=== PATIENT | male | born 1985 | race African-American/Black ===

== ENCOUNTER 2022-11-28 00:43 | Inpatient (IN) | payer MEDICAID, SELFPAY ==
[2022-11-27] MEDS: IPRATROPIUM BROMIDE (0.02%) 0.5MG/2.5ML NEB HHN SCH (01:35)
[~2022-11-28] VITALS: Ht 190.5 cm; Wt 76.2 kg
[2022-11-28] MEDS ORDERED: PREDNISONE 20MG TABLET PO STA (00:49)
[2022-11-28] MEDS ORDERED: IPRATROPIUM BROMIDE (0.02%) 0.5MG/2.5ML NEB HHN STA (00:49)
[2022-11-28] MEDS ORDERED: ALBUTEROL (0.083%) 2.5MG/3ML NEB HHN STA (00:49)
[2022-11-28] MEDS ORDERED: MAGNESIUM 2 G PREMIX 50 ML IV ONE (01:00)
[2022-11-28] MEDS ORDERED: ASPIRIN 81MG TABLET PO ONE (01:00)
[2022-11-28 01:28] LABS: CHLORIDE 109 mEq/L (98-107)
[2022-11-28 02:09] LABS: BASOPHILS % 0.5 % (0.0-2.0); HEMATOCRIT. 38.9 % (42.0-52.0); HEMOGLOBIN. 12.1 g/dL (14.0-18.0); LYMPHOCYTES % 34.4 % (20.0-50.0); MEAN CORPUSCULAR VOLUME 83.5 fL (80.0-94.0); MEAN PLATELET VOLUME 9.7 fl (7.4-10.4); MONOCYTES % 11.4 % (2.0-8.0); NEUTROPHILS % 47.7 % (40.0-76.0); PLATELET 210 x1000/uL (130-400); RED BLOOD CELL COUNT 4.65 mill/uL (4.7-6.1); RED CELL DISTRIBUTION WIDTH 23.4 % (11.6-14.6)
[2022-11-28] MEDS ORDERED: FUROSEMIDE 100MG/10ML VIAL IVP NR (02:45)
[2022-11-28 04:34] LABS: PLATELET ESTIMATE NORMAL
[2022-11-28 14:20] VITALS: BP 133/84
[2022-11-28] MEDS ORDERED: ACETAMINOPHEN 325MG TABLET PO PRN (14:30)
[2022-11-28] MEDS ORDERED: ONDANSETRON HCL 4MG/2ML INJ IV PRN (14:30)
[2022-11-28] MEDS ORDERED: ARIP20TA2 PO (14:34)
[2022-11-28] MEDS ORDERED: LITH300C3 PO (14:34)
[2022-11-28] MEDS: GUAIFENESIN-DM 200MG-20MG/10ML UDC PO PRN ×2 (16:43→23:47)
[2022-11-28 20:59] VITALS: BP 116/87
[2022-11-28] MEDS: IPRATROPIUM BROMIDE (0.02%) 0.5MG/2.5ML NEB HHN SCH (21:23)
[2022-11-29] VITALS: BP 108/81
[2022-11-29 04:00] VITALS: BP 126/95
[2022-11-29 08:00] VITALS: BP 134/96
[2022-11-29 08:00] LABS: CHLORIDE 104 mEq/L (98-107)
[2022-11-29] MEDS: FUROSEMIDE 40MG/4ML VIAL IVP SCH (08:29)
[2022-11-29] MEDS: IPRATROPIUM BROMIDE (0.02%) 0.5MG/2.5ML NEB HHN SCH ×3 (09:35→21:16)
[2022-11-29 12:00] VITALS: BP 115/68
[2022-11-29] MEDS: LORATADINE 10MG TABLET PO SCH (15:49)
[2022-11-29 16:00] VITALS: BP 129/88
[2022-11-29] MEDS ORDERED: IOHEXOL-300 100 ML BOTTLE ONE ×2 (18:45→19:45)
[2022-11-29 20:00] VITALS: BP 115/91
[2022-11-30] VITALS: BP 120/89
[2022-11-30] MEDS: IPRATROPIUM BROMIDE (0.02%) 0.5MG/2.5ML NEB HHN SCH ×4 (02:35→22:06)
[2022-11-30 04:00] VITALS: BP 115/84
[2022-11-30 06:59] LABS: CHLORIDE 104 mEq/L (98-107)
[2022-11-30 08:00] VITALS: BP 111/80
[2022-11-30] MEDS: GUAIFENESIN-DM 200MG-20MG/10ML UDC PO PRN (09:50)
[2022-11-30] MEDS: LORATADINE 10MG TABLET PO SCH (09:51)
[2022-11-30] MEDS: FUROSEMIDE 40MG/4ML VIAL IVP SCH (09:51)
[2022-11-30 12:00] VITALS: BP 106/78
[2022-11-30] MEDS: CEFTRIAXONE 1,000 MG in DEXTROSE 5% WATER 50 ML IV SCH (14:00)
[2022-11-30 16:00] VITALS: BP 117/84
[2022-11-30 17:42] LABS: *AMPHETAMINES SCREEN URINE NEGATIVE (NEGATIVE); *BARBITURATES SCREEN URINE NEGATIVE (NEGATIVE); *BENZODIAZEPINES SCREEN URINE NEGATIVE (NEGATIVE); *COCAINE SCREEN URINE NEGATIVE (NEGATIVE); CANNABINOID URINE SCREEN PRESUMTIVE POSITIVE (NEGATIVE); METHADONE URINE SCREEN NEGATIVE (NEGATIVE); OPIATES URINE SCREEN NEGATIVE (NEGATIVE); PHENCYCLIDINE URINE SCREEN NEGATIVE (NEGATIVE)
[2022-11-30 20:00] VITALS: BP 132/88
[2022-11-30] MEDS: CARVEDILOL 3.125 MG TABLET PO SCH (20:57)
[2022-12-01] VITALS: BP 112/76
[2022-12-01] MEDS: IPRATROPIUM BROMIDE (0.02%) 0.5MG/2.5ML NEB HHN SCH ×4 (01:04→20:53)
[2022-12-01 04:00] VITALS: BP 113/78
[2022-12-01 08:00] VITALS: BP 115/80
[2022-12-01] MEDS: LORATADINE 10MG TABLET PO SCH (08:40)
[2022-12-01] MEDS: FUROSEMIDE 40MG/4ML VIAL IVP SCH (08:41)
[2022-12-01] MEDS: CARVEDILOL 3.125 MG TABLET PO SCH ×2 (08:41→20:33)
[2022-12-01 12:00] VITALS: BP 110/80
[2022-12-01] MEDS: CEFTRIAXONE 1,000 MG in DEXTROSE 5% WATER 50 ML IV SCH (12:41)
[2022-12-01 16:00] VITALS: BP 115/79
[2022-12-01 20:00] VITALS: BP 101/61
[2022-12-02] VITALS: BP 116/86
[2022-12-02] MEDS: IPRATROPIUM BROMIDE (0.02%) 0.5MG/2.5ML NEB HHN SCH ×4 (03:00→21:55)
[2022-12-02 04:00] VITALS: BP 109/72
[2022-12-02 08:00] VITALS: BP 129/72
[2022-12-02] MEDS: LORATADINE 10MG TABLET PO SCH (09:41)
[2022-12-02] MEDS: FUROSEMIDE 40MG/4ML VIAL IVP SCH (09:41)
[2022-12-02] MEDS: CARVEDILOL 3.125 MG TABLET PO SCH (09:42)
[2022-12-02 12:00] VITALS: BP 102/64
[2022-12-02] MEDS: CEFTRIAXONE 1,000 MG in DEXTROSE 5% WATER 50 ML IV SCH (12:10)
[2022-12-02 16:00] VITALS: BP 107/64
[2022-12-02 20:00] VITALS: BP 102/79
[2022-12-02] MEDS: CARVEDILOL 6.25 MG TABLET PO SCH (22:07)
[2022-12-03] VITALS: BP 103/79
[2022-12-03] MEDS: IPRATROPIUM BROMIDE (0.02%) 0.5MG/2.5ML NEB HHN SCH ×3 (03:11→14:59)
[2022-12-03 04:00] VITALS: BP 101/71
[2022-12-03 08:00] VITALS: BP 105/71
[2022-12-03] MEDS: CARVEDILOL 6.25 MG TABLET PO SCH ×2 (09:00→20:34)
[2022-12-03 09:06] LABS: CHLORIDE 102 mEq/L (98-107)
[2022-12-03] MEDS: GUAIFENESIN-DM 200MG-20MG/10ML UDC PO PRN (09:38)
[2022-12-03] MEDS: FUROSEMIDE 40MG/4ML VIAL IVP SCH (09:38)
[2022-12-03] MEDS: LORATADINE 10MG TABLET PO SCH (09:38)
[2022-12-03 12:00] VITALS: BP 91/58
[2022-12-03] MEDS: CEFTRIAXONE 1,000 MG in DEXTROSE 5% WATER 50 ML IV SCH (13:07)
[2022-12-03 16:00] VITALS: BP 109/71
[2022-12-03 20:00] VITALS: BP 125/83
[2022-12-04] VITALS: BP 108/73
[2022-12-04 04:00] VITALS: BP 114/74
[2022-12-04 08:00] VITALS: BP 98/68
[2022-12-04] MEDS: LORATADINE 10MG TABLET PO SCH (09:00)
[2022-12-04] MEDS: FUROSEMIDE 40MG/4ML VIAL IVP SCH (09:00)
[2022-12-04] MEDS: CARVEDILOL 6.25 MG TABLET PO SCH (09:00)
[2022-12-04 12:00] VITALS: BP 129/69
== END 2022-12-04 13:20 | disposition left against medical advice (07) | DRG 137 ==
LOC: ER 00:45 → 8WST 04:16 → ENRESERV 13:54 → 7EST 20:34
PROVIDERS: ADMIT Internal Medicine; ATTEND Internal Medicine
DX: U07.1 COVID-19 (principal); J96.01 Acute respiratory failure with hypoxia; J12.82 Pneumonia due to coronavirus disease 2019; I50.43 Acute on chronic combined systolic (congestive) and diastolic (congestive) heart failure; E43 Unspecified severe protein-calorie malnutrition; D72.10 Eosinophilia, unspecified; I27.20 Pulmonary hypertension, unspecified; I42.9 Cardiomyopathy, unspecified; I11.0 Hypertensive heart disease with heart failure; D64.9 Anemia, unspecified; F17.210 Nicotine dependence, cigarettes, uncomplicated; J81.1 Chronic pulmonary edema; Z53.29 Procedure and treatment not carried out because of patient's decision for other reasons; J44.0 Chronic obstructive pulmonary disease with (acute) lower respiratory infection; F10.11 Alcohol abuse, in remission; F15.10 Other stimulant abuse, uncomplicated; Z68.21 Body mass index [BMI] 21.0-21.9, adult; I34.0 Nonrheumatic mitral (valve) insufficiency; F17.200 Nicotine dependence, unspecified, uncomplicated; F12.90 Cannabis use, unspecified, uncomplicated; Z82.49 Family history of ischemic heart disease and other diseases of the circulatory system; Z59.00 Homelessness unspecified
CPT/HCPCS: 36415; 71045; 74177; 80048; 80053; 80305; 83735; 83880; 84550; 85025; 85379; 87426; 87804; 93005; 93306; 94640; 99285; C1893; J0696; J1940; J3475; J7060; J7512; Q9967

== ENCOUNTER 2023-10-06 03:33 | Emergency (ER) | payer MEDICAID, OTHER ==
[~2023-10-06] VITALS: Ht 190.5 cm; Wt 75.0 kg
[~2023-10-06 03:33] MED LIST: ARIP20TA2 PO; LITH300C3 PO
[2023-10-06 03:43] VITALS: TEMP 98.5; O2SAT 98
[2023-10-06] MEDS ORDERED: ONDANSETRON HCL 4MG/2ML INJ IV ONE (05:45)
[2023-10-06] MEDS ORDERED: MORPHINE SULFATE 4 MG/ML CPJ (NOT FOR IM USE) IV ONE (05:45)
[2023-10-06 05:51] LABS: HEMATOCRIT. 37.9 % (42.0-52.0); HEMOGLOBIN. 11.7 g/dL (14.0-18.0); MEAN CORPUSCULAR HEMOGLOBIN 27.6 pg (28.0-32.0); MEAN CORPUSCULAR HGB CONC 30.9 g/dL (31.0-37.0); MEAN CORPUSCULAR VOLUME 89.4 fL (80.0-94.0); MEAN PLATELET VOLUME 9.4 fl (7.4-10.4); PLATELET 169 x1000/uL (130-400); RED BLOOD CELL COUNT 4.24 mill/uL (4.7-6.1); RED CELL DISTRIBUTION WIDTH 17.3 % (11.6-14.6); WHITE BLOOD COUNT 7.2 x1000/uL (4.5-11.0)
[2023-10-06 06:06] LABS: ALANINE AMINOTRANSFERASE 44 IU/L (10-49); ALBUMIN 3.5 g/dL (3.2-4.8); ASPARTATE AMINOTRANSFERASE 48 IU/L (<34); BILIRUBIN TOTAL 1.5 mg/dL (0.1-1.0); CALCIUM 8.5 mg/dL (8.7-10.4); CARBON DIOXIDE 28 mEq/L (21-32); CHLORIDE 107 mEq/L (98-107); CREATININE 0.9 mg/dL (0.6-1.3); GLUCOSE 100 mg/dL (70-105); POTASSIUM 4.4 mEq/L (3.5-5.1); PROTEIN TOTAL 6.7 g/dL (6.0-8.3); SODIUM 140 mEq/L (136-145); UREA NITROGEN BLOOD 21 mg/dL (9-23)
[2023-10-06 06:11] LABS: DIFFERENTIAL COMMENT 1
[2023-10-06 06:17] VITALS: BP 119/86; PULSE 96; RESP 16
[2023-10-06 06:21] LABS: LACTIC ACID 2.2 mmol/L (0.4-2.0)
[2023-10-06 07:10] LABS: PLATELET ESTIMATE NORMAL
== END 2023-10-06 10:05 | disposition home or self-care (01) ==
LOC: ER 03:45
DX: K43.9 Ventral hernia without obstruction or gangrene (principal); J44.1 Chronic obstructive pulmonary disease with (acute) exacerbation; J45.909 Unspecified asthma, uncomplicated; I50.9 Heart failure, unspecified; Z88.8 Allergy status to other drugs, medicaments and biological substances
CPT/HCPCS: 80053; 83605; 85025; 36415; 96374; 96375; 99284; J2405; J2270; Z7610 ×3

== ENCOUNTER 2023-11-13 17:25 | Emergency (ER) | payer MEDICAID, OTHER ==
[~2023-11-13] VITALS: Ht 182.9 cm; Wt 75.0 kg
[~2023-11-13 17:25] MED LIST changes: +AMI2 PO; +METO25TA6 PO
[2023-11-13 17:27] VITALS: BP 171/117; PULSE 116; RESP 18; TEMP 98.4; O2SAT 99
[2023-11-13] MEDS ORDERED: SODIUM CHLORIDE 0.9% 1,000 ML IV ONE (18:15)
[2023-11-13] MEDS ORDERED: ASPIRIN 325MG EC TABLET PO ONE (18:15)
== END 2023-11-13 19:01 | disposition left against medical advice (07) ==
LOC: ER 17:25
DX: T65.91XA Toxic effect of unspecified substance, accidental (unintentional), initial encounter (principal); Z53.21 Procedure and treatment not carried out due to patient leaving prior to being seen by health care provider; Y92.89 Other specified places as the place of occurrence of the external cause
CPT/HCPCS: 93005; 99281; J7030; Z7610 ×2

== ENCOUNTER 2023-11-19 21:30 | Emergency (ER) | payer MEDICAID, OTHER ==
[~2023-11-19] VITALS: Ht 188 cm; Wt 81.0 kg
[2023-11-19 21:47] VITALS: BP 140/95; PULSE 129; RESP 18; TEMP 98.4; O2SAT 99
== END 2023-11-19 23:30 | disposition home or self-care (01) ==
LOC: ER 21:30
DX: R07.9 Chest pain, unspecified (principal); F20.9 Schizophrenia, unspecified; Z98.890 Other specified postprocedural states; Z88.8 Allergy status to other drugs, medicaments and biological substances
CPT/HCPCS: 71045; 93005; 99284; 99285